=== PATIENT | male | born 1985 | race Caucasian/White ===

== ENCOUNTER 2016-10-03 15:57 | Emergency (ER) | payer OTHER, MEDICAID ==
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
== END 2016-10-03 18:27 | disposition home or self-care (01) ==
LOC: ER 15:57
DX: S63.642A Sprain of metacarpophalangeal joint of left thumb, initial encounter (principal); J45.909 Unspecified asthma, uncomplicated; J44.9 Chronic obstructive pulmonary disease, unspecified; Y08.89XA Assault by other specified means, initial encounter; Y93.89 Activity, other specified; Y92.89 Other specified places as the place of occurrence of the external cause; Y99.8 Other external cause status
CPT/HCPCS: 73130-TC-LT; Z7502

== ENCOUNTER 2018-10-05 08:06 | Emergency (ER) | payer OTHER, MEDICAID ==
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
--- NOTE | 2018-10-05 10:18 | Diagnostic Imaging Report ---
Chest x-ray single view History: Pain, trauma The heart size is normal. No focal pulmonary parenchymal processes. No hilar or mediastinal abnormalities. Impression: No acute abnormalities
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
== END 2018-10-05 09:58 | disposition home or self-care (01) ==
LOC: ER 08:06
DX: S40.022A Contusion of left upper arm, initial encounter (principal); S50.312A Abrasion of left elbow, initial encounter; V89.2XXA Person injured in unspecified motor-vehicle accident, traffic, initial encounter; Y93.89 Activity, other specified; Y92.410 Unspecified street and highway as the place of occurrence of the external cause; Y99.8 Other external cause status
CPT/HCPCS: 71045-TC; 73060-TC-LT; Z7502